=== PATIENT | female | born 1990 | race Two or more races ===

== ENCOUNTER 2022-04-13 19:47 | Emergency (ER) | payer OTHER ==
[~2022-04-13] VITALS: Ht 172.7 cm; Wt 70.8 kg
== END 2022-04-13 22:02 | disposition home or self-care (01) ==
LOC: ER 19:47
DX: R51.9 Headache, unspecified (principal); Z20.822 Contact with and (suspected) exposure to COVID-19

== ENCOUNTER 2022-05-30 21:56 | Emergency (ER) | payer OTHER ==
[~2022-05-30] VITALS: Ht 170.2 cm; Wt 85.3 kg
== END 2022-05-30 23:03 | disposition home or self-care (01) ==
LOC: ER 21:56
DX: J30.9 Allergic rhinitis, unspecified (principal)

== ENCOUNTER 2022-11-16 20:16 | Emergency (ER) | payer OTHER ==
[~2022-11-16] VITALS: Ht 152.4 cm; Wt 81.2 kg
== END 2022-11-16 22:33 | disposition home or self-care (01) ==
LOC: ER 20:16
DX: L71.9 Rosacea, unspecified (principal)

== ENCOUNTER 2023-02-21 19:00 | Emergency (ER) | payer OTHER ==
[~2023-02-21] VITALS: Ht 170.2 cm; Wt 81.2 kg
[2023-02-21 21:11] LABS: URINE APPEARANCE Clear; URINE BACTERIA 379.2 uL (0.0-1933); URINE BILIRRUBIN Negative (NEGATIVE); URINE BLOOD Negative; URINE COLOR Dark Yellow; URINE EPITHELIAL CELLS 35.2 uL (0.0-38.8); URINE GLUCOSE Negative (NEGATIVE); URINE LEUKOCYTE Negative; URINE NITRATE Negative; URINE PROTEIN Trace (NEGATIVE); URINE RBC 134.9 uL (0.0-20.8)
[2023-02-21 21:21] LABS: HEMATOCRIT 38.1 % (36.0-45.00); HEMOGLOBIN 12.7 g/dL (12.0-15.00); MEAN CELL VOLUME 87.7 fL (80.00-100.00); MEAN CORPUSCULAR HEMOGLOBIN 29.3 pg (27.00-32.0); MEAN CORPUSCULAR HGB CONC 33.4 g/dl (32.0-36.0); PLATELET COUNT 255 K/uL (150-450); RED BLOOD COUNT 4.35 M/uL (4.00-6.00); RED CELL DISTRIBUTION WIDTH 12.6 % (11.5-14.5)
== END 2023-02-21 23:03 | disposition home or self-care (01) ==
LOC: ER 19:00
PROVIDERS: General Practice
DX: R53.81 Other malaise (principal); Z20.822 Contact with and (suspected) exposure to COVID-19

== ENCOUNTER 2023-06-20 06:43 | Emergency (ER) | payer OTHER ==
[~2023-06-20] VITALS: Ht 170.2 cm; Wt 84.8 kg
[2023-06-20] MEDS ORDERED: DEXAMETHASONE SODIUM PHOSPHATE 4 MG/ML VIAL IM ONE (08:45)
[2023-06-20 09:12] LABS: HEMATOCRIT 37.8 % (36.0-45.00); HEMOGLOBIN 13.1 g/dL (12.0-15.00); MEAN CELL VOLUME 87.3 fL (80.00-100.00); MEAN CORPUSCULAR HEMOGLOBIN 30.2 pg (27.00-32.0); MEAN CORPUSCULAR HGB CONC 34.5 g/dl (32.0-36.0); PLATELET COUNT 220 K/uL (150-450); RED BLOOD COUNT 4.33 M/uL (4.00-6.00); RED CELL DISTRIBUTION WIDTH 12.6 % (11.5-14.5)
[2023-06-20 09:42] LABS: URINE APPEARANCE Clear; URINE BILIRRUBIN Negative (NEGATIVE); URINE BLOOD Moderate; URINE COLOR Yellow; URINE GLUCOSE Negative (NEGATIVE); URINE LEUKOCYTE Moderate; URINE NITRATE Negative; URINE PROTEIN Negative (NEGATIVE)
[2023-06-20 09:43] LABS: ALBUMIN 3.4 gm/dL (3.4-5.0); BILIRUBIN TOTAL 0.15 mg/dL (0.3-1.2); CALCIUM 8.9 mg/dL (8.5-10.1); CREATININE SERUM 0.88 mg/dL (0.55-1.02); GFR 74.95; POTASSIUM 3.89 mEq/L (3.5-5.1); TOTAL PROTEIN 7.4 gm/dL (6.4-8.2)
[2023-06-20 09:46] LABS: URINE BACTERIA 1094.8 uL (0.0-1933); URINE EPITHELIAL CELLS 38.6 uL (0.0-38.8); URINE RBC 19.4 uL (0.0-20.8); URINE WBC 122.1 uL (0.0-23.2)
[2023-06-20] MEDS ORDERED: BACTRIM DS TAB1 EACH PO (10:14)
[2023-06-21] MEDS ORDERED: RESTORA RX CAP1 EACH PO (23:11)
[2023-06-21] MEDS ORDERED: CIPRO500 MG PO (23:11)
== END 2023-06-20 11:25 | disposition home or self-care (01) ==
LOC: ER 06:43
PROVIDERS: General Practice
DX: N39.0 Urinary tract infection, site not specified (principal); Z20.822 Contact with and (suspected) exposure to COVID-19

== ENCOUNTER 2023-06-21 18:18 | Emergency (ER) | payer OTHER ==
[~2023-06-21] VITALS: Ht 170.2 cm; Wt 86.2 kg
[~2023-06-21 18:18] MED LIST: BACTRIM DS TAB1 EACH PO
[2023-06-21] MEDS ORDERED: DIPHENHYDRAMINE HCL 50 MG/ML VIAL 1ML IM STA (22:59)
[2023-06-21] MEDS ORDERED: CIPRO500 MG PO (23:11)
[2023-06-21] MEDS ORDERED: RESTORA RX CAP1 EACH PO (23:11)
[2023-06-21] MEDS ORDERED: KETOROLAC TROMETHAMINE 30 MG VIAL IM ONE (23:45)
== END 2023-06-21 23:49 | disposition home or self-care (01) ==
LOC: ER 18:18
DX: T36.8X5A Adverse effect of other systemic antibiotics, initial encounter (principal); Y92.89 Other specified places as the place of occurrence of the external cause

== ENCOUNTER 2024-02-16 18:51 | Emergency (ER) | payer OTHER ==
[~2024-02-16] VITALS: Ht 170.2 cm; Wt 78.9 kg
[~2024-02-16 18:51] MED LIST changes: +AMOX-CLAV 875-1 EACH PO; +CIPRO500 MG PO; +RESTORA RX CAP1 EACH PO
[2024-02-16] MEDS ORDERED: AZITHROMYCIN 500 MG TABLET PO ONE (19:15)
[2024-02-16] MEDS ORDERED: DEXAMETHASONE SODIUM PHOSPHATE 4 MG/ML VIAL IM ONE (19:15)
[2024-02-16] MEDS ORDERED: ACETAMINOPHEN 500 MG GEL..CAP PO ONE (19:15)
[2024-02-16 19:43] LABS: HEMATOCRIT 40.5 % (36.0-45.00); HEMOGLOBIN 13.3 g/dL (12.0-15.00); MEAN CELL VOLUME 88.1 fL (80.00-100.00); MEAN CORPUSCULAR HEMOGLOBIN 28.9 pg (27.00-32.0); MEAN CORPUSCULAR HGB CONC 32.8 g/dl (32.0-36.0); PLATELET COUNT 250 K/uL (150-450); RED CELL DISTRIBUTION WIDTH 12.6 % (11.5-14.5)
[2024-02-16] MEDS ORDERED: ZITHROMAX500 MG PO (20:52)
[2024-02-16] MEDS ORDERED: TUSNEL LIQUID178 ML PO (20:52)
== END 2024-02-16 20:55 | disposition home or self-care (01) ==
LOC: ER 18:53 → EMR PED 18:53 → ER 19:17
PROVIDERS: General Practice
DX: R53.81 Other malaise (principal); J06.9 Acute upper respiratory infection, unspecified; Z20.822 Contact with and (suspected) exposure to COVID-19

== ENCOUNTER → 2025-01-24 | Emergency (ER) | payer OTHER ==
[~2025-01-24] VITALS: Ht 170.2 cm; Wt 70.3 kg
[~2025-01-24] MED LIST changes: +0.9 % SODIUM CHLORIDE 1,000 ML IV ONE; +ACETAMINOPHEN 500 MG GEL..CAP PO ONE; +DEXAMETHASONE SODIUM PHOSPHATE 4 MG/ML VIAL IM ONE; +MACROBID 100 M100 MG PO; +PEPCID AC20 MG PO; +TUSNEL LIQUID178 ML PO; +ZITHROMAX500 MG PO
[2025-01-24 23:26] LABS: URINE APPEARANCE Cloudy; URINE BILIRRUBIN Negative (NEGATIVE); URINE BLOOD Large; URINE COLOR Dark Yellow; URINE GLUCOSE Negative (NEGATIVE); URINE KETONE Trace (NEGATIVE); URINE LEUKOCYTE Moderate; URINE NITRATE Negative; URINE PROTEIN Negative (NEGATIVE); URINE UROBILINOGEN 1.0 E.U./dl
[2025-01-24 23:29] LABS: URINE BACTERIA 331.1 uL (0.0-1933); URINE CAST 2.19 uL (0.0-1.40); URINE EPITHELIAL CELLS 36.4 uL (0.0-38.8); URINE RBC 19.6 uL (0.0-20.8); URINE WBC 30.7 uL (0.0-23.2)
[2025-01-24 23:34] LABS: BASO % 0.7 % (0.1-1.2); EOS # 0.19 (0.04-0.54); EOS % 2.5 % (0.7-7.0); LYMPH # 3.47 (1.18-3.74); LYMPH % 46.5 % (19.3-53.1); MEAN PLATELET VOLUME 14.10 fl (9.4-12.4); MONO # 0.70 (0.24-0.82); MONO % 9.4 % (4.7-12.5); NEUT # 3.04 (1.56-6.13); NEUT % 40.8 % (34.0-71.1); RED CELL DISTRIBUTION WIDTH 12.0 % (11.6-14.4)
[2025-01-24 23:46] LABS: ALT/SGPT 49 U/L (12-78); AST/SGOT 21 U/L (15-37); BILIRUBIN TOTAL 0.29 mg/dL (0.3-1.2); BUN CREA RATIO 14 (7.0-25.0); CREATININE SERUM 0.92 mg/dL (0.55-1.02); GFR 70.30; GLOBULINA 3.3 G/DL (2.4-3.5); GLUCOSE FASTING 80 mg/dL (65-100); OSMOLALITY SERUM 280 MOSM/KG (275-295)
[2025-01-24 23:50] LABS: HCG QUANTITATIVE < 1 mUI/mL (1-3)
[2025-01-25 00:10] LABS: URINE MUCUS MODERATE
== END | disposition left against medical advice (07) ==
LOC: ER 17:58
PROVIDERS: General Practice
DX: R10.20 Pelvic and perineal pain unspecified side (principal); N93.8 Other specified abnormal uterine and vaginal bleeding; D25.9 Leiomyoma of uterus, unspecified; Z88.8 Allergy status to other drugs, medicaments and biological substances

== ENCOUNTER 2025-01-28 13:31 | Emergency (ER) | payer OTHER ==
[~2025-01-28] VITALS: Ht 170.2 cm; Wt 70.3 kg
[~2025-01-28 13:31] MED LIST changes: -0.9 % SODIUM CHLORIDE 1,000 ML IV ONE; -ACETAMINOPHEN 500 MG GEL..CAP PO ONE; -DEXAMETHASONE SODIUM PHOSPHATE 4 MG/ML VIAL IM ONE; -MACROBID 100 M100 MG PO; -PEPCID AC20 MG PO
[2025-01-28 21:24] LABS: BASO % 0.4 % (0.1-1.2); EOS # 0.17 (0.04-0.54); EOS % 2.5 % (0.7-7.0); LYMPH # 3.07 (1.18-3.74); LYMPH % 44.4 % (19.3-53.1); MEAN PLATELET VOLUME 13.10 fl (9.4-12.4); MONO # 0.58 (0.24-0.82); MONO % 8.4 % (4.7-12.5); NEUT # 3.06 (1.56-6.13); NEUT % 44.3 % (34.0-71.1); RED CELL DISTRIBUTION WIDTH 12.1 % (11.6-14.4)
[2025-01-28 21:40] LABS: URINE APPEARANCE Turbid; URINE BILIRRUBIN Negative (NEGATIVE); URINE BLOOD Large; URINE COLOR Dark Yellow; URINE GLUCOSE Negative (NEGATIVE); URINE KETONE Trace (NEGATIVE); URINE LEUKOCYTE Large; URINE NITRATE Negative; URINE PROTEIN 30 (NEGATIVE); URINE UROBILINOGEN 1.0 E.U./dl
[2025-01-28 21:44] LABS: URINE BACTERIA 9355.1 uL (0.0-1933); URINE EPITHELIAL CELLS 39.3 uL (0.0-38.8); URINE RBC 120.4 uL (0.0-20.8); URINE WBC 1465.1 uL (0.0-23.2)
[2025-01-28 21:48] LABS: ALT/SGPT 67.0 U/L (12-78); AST/SGOT 26.0 U/L (15-37); BILIRUBIN TOTAL 0.32 mg/dL (0.3-1.2); BUN CREA RATIO 17.0 (7.0-25.0); CREATININE SERUM 0.82 mg/dL (0.55-1.02); GFR 80.28; GLOBULINA 3.5 G/DL (2.4-3.5); GLUCOSE FASTING 107.0 mg/dL (65-100); OSMOLALITY SERUM 282.0 MOSM/KG (275-295)
[2025-01-28 22:03] LABS: URINE CAST 0.43 uL (0.0-1.40)
[2025-01-28] MEDS ORDERED: MACROBID 100 M100 MG PO (22:14)
[2025-01-28] MEDS ORDERED: PEPCID AC20 MG PO (22:14)
[2025-01-28] MEDS ORDERED: KETOROLAC TROMETHAMINE 30 MG VIAL IM ONE (22:30)
[2025-01-28] MEDS ORDERED: CEFTRIAXONE SODIUM 1,000 MG VIAL IM ONE (22:30)
[2025-01-28] MEDS ORDERED: KETOROLAC TROMETHAMINE 30 MG VIAL ONE (22:34)
[2025-01-28] MEDS ORDERED: CEFTRIAXONE SODIUM 1,000 MG VIAL ONE (22:34)
== END 2025-01-28 22:53 | disposition home or self-care (01) ==
LOC: ER 13:32
PROVIDERS: General Practice
DX: R10.20 Pelvic and perineal pain unspecified side (principal); N93.9 Abnormal uterine and vaginal bleeding, unspecified; D25.9 Leiomyoma of uterus, unspecified; Z88.8 Allergy status to other drugs, medicaments and biological substances